=== PATIENT | female | born 1975 | race Caucasian/White ===

== ENCOUNTER 2017-01-06 08:17 | Emergency (ER) | payer MEDICAID ==
[2017-01-06 09:59] VITALS: BP 132/58
== END 2017-01-06 09:59 | disposition home or self-care (01) ==
LOC: ED 08:17
DX: M25.562 Pain in left knee (principal); Z98.51 Tubal ligation status
CPT/HCPCS: J7512; Q0092

== ENCOUNTER 2017-05-31 05:02 | Emergency (ER) | payer MEDICAID ==
[2017-05-31 05:55] VITALS: BP 113/77
== END 2017-05-31 05:55 | disposition home or self-care (01) ==
LOC: ED 05:02
DX: G44.209 Tension-type headache, unspecified, not intractable (principal); M62.838 Other muscle spasm; Z90.89 Acquired absence of other organs; Z98.51 Tubal ligation status
CPT/HCPCS: 20552; J2001

== ENCOUNTER 2018-02-01 08:53 | Emergency (ER) | payer MEDICAID ==
[~2018-02-01] VITALS: Ht 157.5 cm; Wt 77.1 kg
[2018-02-01 09:01] VITALS: Ht 157.5 cm; Wt 77.1 kg
[2018-02-01 09:46] LABS: CALCIUM 8.4 mg/dL (8.5-10.1); CARBON DIOXIDE 27.9 mmol/L (21-32); CHLORIDE SERUM 115 mmol/L (98-107); CREATININE SERUM 0.6 mg/dL (0.6-1.0); GFR1 > 60 mL/min; GLUCOSE SERUM 100 mg/dL (74-106); POTASSIUM SERUM 4.4 mmol/L (3.5-5.1); SODIUM SERUM 143 mmol/L (136-145)
[2018-02-01 09:51] LABS: ALKALINE PHOSPHATASE 68 U/L (46-116); ALT/SGPT 35 U/L (14-59); AST/SGOT 11 U/L (15-37); BILIRUBIN TOTAL 0.6 mg/dL (0.20-1.00); LIPASE 120 IU/L (73-393); TOTAL PROTEIN, SERUM 7.1 g/dL (6.4-8.2)
[2018-02-01 09:55] LABS: ALBUMIN 3.1 g/dL (3.4-5.0)
[2018-02-01 09:58] LABS: BASOPHIL % 0.3 % (0-2); PLATELET COUNT 366 x10^3mcL (130-400)
[2018-02-01 10:17] LABS: RED CELL DISTRIBUTION WIDTH 14.8 % (11.5-14.5)
[2018-02-01 10:42] VITALS: BP 133/78
== END 2018-02-01 10:42 | disposition home or self-care (01) ==
LOC: ED 08:53
PROVIDERS: Emergency Medicine
DX: R10.11 Right upper quadrant pain (principal)
CPT/HCPCS: 36415; J1885; Q0162

== ENCOUNTER 2018-05-30 08:51 | Emergency (ER) | payer MEDICAID ==
[~2018-05-30] VITALS: Ht 157.5 cm; Wt 77.1 kg
[2018-05-30 08:59] VITALS: Ht 157.5 cm; Wt 77.1 kg
[2018-05-30 10:00] LABS: CALCIUM 8.5 mg/dL (8.5-10.1); CARBON DIOXIDE 28.6 mmol/L (21-32); CHLORIDE SERUM 104 mmol/L (98-107); CREATININE SERUM 0.7 mg/dL (0.6-1.0); GFR1 > 60 mL/min; GLUCOSE SERUM 93 mg/dL (74-106); POTASSIUM SERUM 3.8 mmol/L (3.5-5.1); SODIUM SERUM 139 mmol/L (136-145)
[2018-05-30 10:02] LABS: BASOPHIL % 0.4 % (0-2); PLATELET COUNT 367 x10^3mcL (130-400); RED CELL DISTRIBUTION WIDTH 14.5 % (11.5-14.5)
[2018-05-30 10:06] LABS: ALKALINE PHOSPHATASE 60 U/L (46-116); ALT/SGPT 34 U/L (14-59); AST/SGOT 8 U/L (15-37); BILIRUBIN TOTAL 0.4 mg/dL (0.20-1.00); HDL CHOLESTEROL 40 mg/dL (40-60); LIPASE 128 IU/L (73-393); TOTAL PROTEIN, SERUM 7.5 g/dL (6.4-8.2); TRIGLYCERIDES 143 mg/dL (<150)
[2018-05-30 10:07] LABS: ALBUMIN 3.2 g/dL (3.4-5.0); CHOLESTEROL 231 mg/dL (<200); CHOLESTEROL/HDL RATIO 5.8
[2018-05-30 10:16] LABS: FREE T4 0.94 ng/dL (0.76-1.46); T3 TOTAL 1.15 ng/mL; T4(THYROXINE) 6.7 ug/dL (4.7-13.3)
[2018-05-30 11:17] VITALS: BP 106/79
== END 2018-05-30 11:15 | disposition home or self-care (01) ==
LOC: ED 08:51
PROVIDERS: Specialist
DX: R10.13 Epigastric pain (principal); Z87.442 Personal history of urinary calculi; Z98.890 Other specified postprocedural states
CPT/HCPCS: 83880; 84439; J0780; J1885; Q0092

== ENCOUNTER 2018-10-03 07:05 | Emergency (ER) | payer MEDICAID ==
[~2018-10-03] VITALS: Ht 157.5 cm; Wt 77.1 kg
[2018-10-03 07:17] VITALS: Ht 157.5 cm; Wt 77.1 kg
[2018-10-03 10:02] VITALS: BP 90/74
== END 2018-10-03 10:02 | disposition home or self-care (01) ==
LOC: ED 07:05
DX: J02.9 Acute pharyngitis, unspecified (principal); Z87.442 Personal history of urinary calculi; Z90.49 Acquired absence of other specified parts of digestive tract

== ENCOUNTER 2019-06-23 18:04 | Emergency (ER) | payer MEDICAID ==
[~2019-06-23] VITALS: Ht 157.5 cm; Wt 76.7 kg
[2019-06-23 18:14] VITALS: Ht 157.5 cm; Wt 76.7 kg
[2019-06-23 22:58] VITALS: BP 104/67
== END 2019-06-23 22:58 | disposition home or self-care (01) ==
LOC: ED 18:04
DX: G43.909 Migraine, unspecified, not intractable, without status migrainosus (principal); J32.2 Chronic ethmoidal sinusitis; E66.9 Obesity, unspecified; Z68.30 Body mass index [BMI] 30.0-30.9, adult; Z90.49 Acquired absence of other specified parts of digestive tract; Z98.51 Tubal ligation status
CPT/HCPCS: J3030

== ENCOUNTER 2019-09-27 09:16 | Emergency (ER) | payer MEDICAID ==
[~2019-09-27] VITALS: Ht 157.5 cm; Wt 77.1 kg
[2019-09-27 09:26] VITALS: Ht 157.5 cm; Wt 77.1 kg
[2019-09-27 10:30] LABS: UA SPECIFIC GRAVITY 1.015 (1.005-1.035); microscopic required? YES; urine erythrocyte TRACE (NEGATIVE)
[2019-09-27 10:39] LABS: BASOPHIL % 0.4 % (0-2); PLATELET COUNT 389 x10^3mcL (130-400)
[2019-09-27 10:49] LABS: RED CELL DISTRIBUTION WIDTH 14.8 % (11.5-14.5)
[2019-09-27 11:11] LABS: CARBON DIOXIDE 30.3 mmol/L (21-32); CHLORIDE SERUM 108 mmol/L (98-107); CREATININE SERUM 0.6 mg/dL (0.6-1.0); GFR1 > 60 mL/min; GLUCOSE SERUM 94 mg/dL (74-106); POTASSIUM SERUM 3.9 mmol/L (3.5-5.1); SODIUM SERUM 142 mmol/L (136-145)
[2019-09-27 11:12] LABS: ALKALINE PHOSPHATASE 58 U/L (46-116); ALT/SGPT 41 U/L (14-59); AST/SGOT 10 U/L (15-37); BILIRUBIN TOTAL 0.4 mg/dL (0.20-1.00); CALCIUM 8.5 mg/dL (8.5-10.1); LIPASE 104 IU/L (73-393); TOTAL PROTEIN, SERUM 7.2 g/dL (6.4-8.2)
[2019-09-27 13:16] VITALS: BP 114/47
== END 2019-09-27 13:16 | disposition home or self-care (01) ==
LOC: ED 09:16
PROVIDERS: Emergency Medicine
DX: R10.816 Epigastric abdominal tenderness (principal); R11.2 Nausea with vomiting, unspecified; R19.7 Diarrhea, unspecified; Z90.49 Acquired absence of other specified parts of digestive tract; Z98.51 Tubal ligation status
CPT/HCPCS: J1885; J2405; J7030

== ENCOUNTER 2020-10-30 16:38 | Inpatient (IN) | payer MEDICAID ==
[~2020-10-30] VITALS: Ht 157.5 cm; Wt 76.0 kg
[2020-10-30 16:43] VITALS: Ht 157.5 cm; Wt 76.0 kg
[2020-10-30 17:48] LABS: PLATELET COUNT 313 x10^3mcL (179-408)
[2020-10-30 17:53] LABS: RED CELL DISTRIBUTION WIDTH 16.8 % (12.3-17.7)
[2020-10-30 18:01] LABS: CALCIUM 8.6 mg/dL (8.5-10.1); CARBON DIOXIDE 25.2 mmol/L (21-32); CHLORIDE SERUM 101 mmol/L (98-107); CREATININE SERUM 0.7 mg/dL (0.6-1.0); GFR1 > 60 mL/min; GLUCOSE SERUM 83 mg/dL (74-106); POTASSIUM SERUM 3.7 mmol/L (3.5-5.1); SODIUM SERUM 136 mmol/L (136-145)
[2020-10-30 18:08] LABS: ALKALINE PHOSPHATASE 82 U/L (46-116); ALT/SGPT 26 U/L (14-59); AST/SGOT 9 U/L (15-37); BILIRUBIN TOTAL 0.6 mg/dL (0.20-1.00); TOTAL PROTEIN, SERUM 7.2 g/dL (6.4-8.2)
[2020-10-30 18:09] LABS: ALBUMIN 2.7 g/dL (3.4-5.0)
[2020-10-30 18:35] LABS: rbc morphology (normal/abnorm) ABNORMAL (NORMAL)
[2020-10-30 19:01] LABS: microscopic required? NO
[2020-10-30 19:17] LABS: UA SPECIFIC GRAVITY >=1.030 (1.005-1.035); urine erythrocyte NEGATIVE (NEGATIVE)
[2020-10-30 19:30] LABS: CHOLESTEROL/HDL RATIO 4.3; T3 TOTAL 1.46 ng/mL
[2020-10-30 20:06] LABS: FREE T4 1.15 ng/dL (0.76-1.46); FREE THYROXINE INDEX 3.5 ug/dL (1.4-4.5)
[2020-10-30 20:35] LABS: RED BLOOD CELLS 3.96 M/mm3 (4.10-5.10)
[2020-10-30 20:54] VITALS: BP 114/42
[2020-10-30 22:17] LABS: TOTAL IRON BINDING CAPACITY 443 ug/dL (250-450)
[2020-10-30 22:19] LABS: IRON 29 ug/dL (50-170)
[2020-10-31 05:47] LABS: BASOPHIL % 0.4 % (0.2-1.3); PLATELET COUNT 306 x10^3mcL (179-408)
[2020-10-31 05:56] LABS: CARBON DIOXIDE 26.7 mmol/L (21-32); CHLORIDE SERUM 104 mmol/L (98-107); CREATININE SERUM 0.7 mg/dL (0.6-1.0); GFR1 > 60 mL/min; GLUCOSE SERUM 74 mg/dL (74-106); MAGNESIUM 2.1 mg/dL (1.8-2.4); PHOSPHOROUS 4.3 mg/dL (2.5-4.9); POTASSIUM SERUM 4.1 mmol/L (3.5-5.1); SODIUM SERUM 137 mmol/L (136-145)
[2020-10-31 06:04] VITALS: BP 95/53
[2020-10-31 06:30] LABS: RED CELL DISTRIBUTION WIDTH 16.6 % (12.3-17.7)
[2020-10-31 09:00] VITALS: BP 116/65
[2020-10-31 13:01] VITALS: BP 124/74
[2020-10-31 16:38] VITALS: BP 129/83
[2020-10-31 21:14] VITALS: BP 122/75
[2020-11-01 06:02] VITALS: BP 123/70
[2020-11-01 06:30] LABS: BASOPHIL % 0.5 % (0.2-1.3); PLATELET COUNT 333 x10^3mcL (179-408)
[2020-11-01 07:05] LABS: CALCIUM 8.7 mg/dL (8.5-10.1); CARBON DIOXIDE 26.9 mmol/L (21-32); CHLORIDE SERUM 104 mmol/L (98-107); CREATININE SERUM 0.6 mg/dL (0.6-1.0); GFR1 > 60 mL/min; GLUCOSE SERUM 90 mg/dL (74-106); PHOSPHOROUS 3.8 mg/dL (2.5-4.9); POTASSIUM SERUM 4.2 mmol/L (3.5-5.1); SODIUM SERUM 137 mmol/L (136-145)
[2020-11-01 09:17] VITALS: BP 125/77
[2020-11-01 13:47] VITALS: BP 112/78
[2020-11-01 16:29] VITALS: BP 132/72
[2020-11-01 20:47] VITALS: BP 117/69
[2020-11-02 05:04] VITALS: BP 106/64
[2020-11-02 07:58] LABS: BASOPHIL % 0.6 % (0.2-1.3); PLATELET COUNT 376 x10^3mcL (179-408)
[2020-11-02 08:06] LABS: CARBON DIOXIDE 26.5 mmol/L (21-32); CHLORIDE SERUM 99 mmol/L (98-107); CREATININE SERUM 0.6 mg/dL (0.6-1.0); GFR1 > 60 mL/min; GLUCOSE SERUM 83 mg/dL (74-106); MAGNESIUM 2.1 mg/dL (1.8-2.4); PHOSPHOROUS 3.2 mg/dL (2.5-4.9); POTASSIUM SERUM 3.9 mmol/L (3.5-5.1); SODIUM SERUM 133 mmol/L (136-145)
[2020-11-02 08:30] LABS: RED CELL DISTRIBUTION WIDTH 17.5 % (12.3-17.7)
[2020-11-02 09:13] VITALS: BP 122/76
[2020-11-02 12:29] VITALS: BP 108/67
[2020-11-02 17:34] VITALS: BP 107/63
[2020-11-02 21:25] VITALS: BP 112/69
[2020-11-03 05:12] VITALS: BP 106/70
[2020-11-03 06:49] LABS: CALCIUM 8.4 mg/dL (8.5-10.1); CARBON DIOXIDE 28.2 mmol/L (21-32); CHLORIDE SERUM 103 mmol/L (98-107); CREATININE SERUM 0.7 mg/dL (0.6-1.0); GFR1 > 60 mL/min; GLUCOSE SERUM 82 mg/dL (74-106); PHOSPHOROUS 3.4 mg/dL (2.5-4.9); POTASSIUM SERUM 3.9 mmol/L (3.5-5.1); SODIUM SERUM 137 mmol/L (136-145)
[2020-11-03 07:09] LABS: BASOPHIL % 0.3 % (0.2-1.3)
[2020-11-03 07:27] LABS: PLATELET COUNT 423 x10^3mcL (179-408); RED CELL DISTRIBUTION WIDTH 16.9 % (12.3-17.7)
[2020-11-03 09:39] VITALS: BP 95/45
[2020-11-03 13:27] VITALS: BP 105/70
[2020-11-03 17:14] VITALS: BP 122/78; BP 132/54
[2020-11-03 20:23] VITALS: BP 114/65
[2020-11-04 05:14] VITALS: BP 110/64
[2020-11-04 07:22] LABS: BASOPHIL % 0.2 % (0.2-1.3)
[2020-11-04 07:31] LABS: CALCIUM 8.1 mg/dL (8.5-10.1); CARBON DIOXIDE 26.5 mmol/L (21-32); CHLORIDE SERUM 103 mmol/L (98-107); CREATININE SERUM 0.7 mg/dL (0.6-1.0); GFR1 > 60 mL/min; GLUCOSE SERUM 87 mg/dL (74-106); POTASSIUM SERUM 4.1 mmol/L (3.5-5.1); SODIUM SERUM 136 mmol/L (136-145)
[2020-11-04 07:32] LABS: PLATELET COUNT 432 x10^3mcL (179-408)
[2020-11-04 07:33] LABS: rbc morphology (normal/abnorm) NORMAL (NORMAL)
[2020-11-04 08:52] VITALS: BP 109/71
[2020-11-04] MEDS ORDERED: LIPI20 PO (10:18)
[2020-11-04] MEDS ORDERED: XARELTO15 M1 PO (10:19)
[2020-11-04] MEDS ORDERED: XARELTO20 M1 PO (10:20)
[2020-11-04 11:05] VITALS: BP 130/83
== END 2020-11-04 12:24 | disposition home or self-care (01) | DRG 197 ==
LOC: ED 16:38 → DU 18:42 → MU 18:42 → DU 11-02 04:56
PROVIDERS: Emergency Medicine; ADMIT Internal Medicine; ATTEND Internal Medicine
DX: I82.402 Acute embolism and thrombosis of unspecified deep veins of left lower extremity (principal); I26.99 Other pulmonary embolism without acute cor pulmonale; E43 Unspecified severe protein-calorie malnutrition; Z20.822 Contact with and (suspected) exposure to COVID-19; K21.9 Gastro-esophageal reflux disease without esophagitis; D64.9 Anemia, unspecified; E78.5 Hyperlipidemia, unspecified; Z90.49 Acquired absence of other specified parts of digestive tract; Z98.51 Tubal ligation status; Z79.899 Other long term (current) drug therapy; Z79.891 Long term (current) use of opiate analgesic; Z79.01 Long term (current) use of anticoagulants; Z87.442 Personal history of urinary calculi; Z98.891 History of uterine scar from previous surgery; Z68.30 Body mass index [BMI] 30.0-30.9, adult
CPT/HCPCS: 84439; 85378; C9113; G0378; J1650; J1885; J2270; J2405; Q9967